=== PATIENT | female | born 1990 | race Caucasian/White ===

== ENCOUNTER 2018-10-16 18:22 | Emergency (ER) | payer MEDICAID, OTHER ==
[~2018-10-16] VITALS: Ht 170.2 cm; Wt 98.9 kg
[~2018-10-16 18:22] MED LIST: BACL10TA PO; HYDR-914 PO; NAPROXEN
[2018-10-16 18:27] VITALS: BP_SYST 162
--- NOTE | 2018-10-16 18:36 | NUR ---
Patient to ER bed 2 to gown for evaluation. Side rails up. Report given to Mandeep LARA.
--- NOTE | 2018-10-16 18:39 | NUR ---
Patient is awake, alert, and oriented x4. Patient reports that she has had aching/throbbing right sided abdominal pain, nausea, vomiting, and diarrhea for 1 week. She also states that she usually drinks 4-5 beers daily, stopping 1 week ago since the pain started.
--- NOTE | 2018-10-16 18:54 | NUR ---
ER at bedside examining patient.
[2018-10-16] MEDS ORDERED: KETOROLAC TROMETHAMINE 60 MG/2 ML VIAL IM ONE (19:00)
[2018-10-16 19:10] LABS: BILIRUBIN,URINE NEGATIVE (NEGATIVE); BLOOD, URINE 1+ (NEGATIVE); CLARITY/URINE CLEAR (CLEAR); COLOR,URINE YELLOW (YELLOW); GLUCOSE,URINE NEGATIVE (NEGATIVE); KETONES,URINE NEGATIVE (NEGATIVE); LEUKOCYTE ESTERASE ,URINE NEGATIVE (NEGATIVE); NITRITE, URINE NEGATIVE (NEGATIVE); PROTEIN URINE NEGATIVE (NEGATIVE); UROBILINOGEN,URINE 0.2 (0.2-1.0)
--- NOTE | 2018-10-16 19:12 | NUR ---
Report given to MARCO Elena for continuation of care.
[2018-10-16 19:18] LABS: BASOPHILS # (AUTO) 0.1 K/uL (0.0-0.2); BASOPHILS % (AUTO) 0.6 % (0.0-2.0); EOSINOPHILS # (AUTO) 0.4 K/uL (0.0-0.4); EOSINOPHILS % (AUTO) 3.2 % (0.0-4.0); HEMATOCRIT 37.3 % (36-48); HEMOGLOBIN 12.8 g/dL (12.0-16.0); LYMPHOCYTES # (AUTO) 2.9 K/uL (1.0-5.5); LYMPHOCYTES % (AUTO) 25.8 % (20.5-51.5); MEAN CORPUSCULAR HEMOGLOBIN 33 pg (27-31); MEAN CORPUSCULAR HGB CONC 34 % (32-36); MEAN CORPUSCULAR VOLUME 97 fL (79.0-98.0); MONOCYTES # (AUTO) 0.7 K/uL (0.0-1.0); MONOCYTES % (AUTO) 6.4 % (1.7-9.3); NEUTROPHILS # (AUTO) 7.1 K/uL (1.8-7.7); PLATELET COUNT (AUTO) 318 K/uL (130-430); RED BLOOD CELL COUNT(AUTO) 3.86 MIL/uL (4.2-6.2); RED CELL DISTRIBUTION WIDTH 12.4 % (9.0-15.0); WHITE BLOOD COUNT (AUTO) 11.2 K/uL (4.8-10.8)
[2018-10-16 19:31] LABS: CALCIUM 9.4 mg/dL (8.4-11.0); CREATININE 0.71 mg/dL (0.55-1.30); POTASSIUM 3.6 mmol/L (3.5-5.1)
[2018-10-16 19:33] LABS: BACTERIA,URINE RARE /HPF (None Seen); WBC,URINE 0-3 /HPF (0-3)
[2018-10-16 19:35] LABS: ALBUMIN 3.9 g/dL (3.4-4.8); TOTAL BILIRUBIN 0.6 mg/dL (0.0-1.0)
--- NOTE | 2018-10-16 20:15 | NUR ---
Pt to U/S via W/C.
--- NOTE | 2018-10-16 20:30 | NUR ---
Pt returns from U/S. C/o pain to right side. Dr. Moffett notified.
[2018-10-16] MEDS ORDERED: NACL 0.9% 1,000 ML IV ONE (20:46)
[2018-10-16] MEDS ORDERED: DIPHENHYDRAMINE INJ 50 MG/ML VIAL IVP ONE (21:00)
[2018-10-16] MEDS ORDERED: MORPHINE 4 MG/ML INJ. SYRINGE IVP ONE (21:00)
--- NOTE | 2018-10-16 22:10 | NUR ---
Pt to CT via W/C in stable condition.
[2018-10-16] MEDS ORDERED: IOHEXOL 100 ML IV ONE (22:14)
--- NOTE | 2018-10-16 22:20 | NUR ---
Pt returns from CT. Nazario radiology scheduler, reports that PIV infiltrated with contrast. Swelling noted to above PIV site, painful to touch. PIV discontinued with angiocath tip intact, pressure dsg applied, no bleeding noted. Dr. Moffett notified. Warm compresses applied to site of infiltration.
--- NOTE | 2018-10-16 23:00 | NUR ---
Mild pain with movement and swelling to right upper arm, no skin discoloration noted. New warm compresses applied. No needs verbalized at this time. VSS.
--- NOTE | 2018-10-16 23:47 | NUR ---
Mild pain with movement and swelling to right upper arm, no skin discoloration noted. New warm compresses applied. No needs verbalized at this time. VSS.
--- NOTE | 2018-10-17 00:17 | NUR ---
Pt states pain is returning to her right abdomen. Dr. Moffett notified.
[2018-10-17] MEDS ORDERED: MORPHINE SULFATE 10 MG/ML VIAL IM ONE (00:30)
[2018-10-17] MEDS ORDERED: DIPHENHYDRAMINE INJ 50 MG/ML VIAL IM ONE (00:30)
--- NOTE | 2018-10-17 00:45 | NUR ---
Improvement in swelling noted to Right upper extremity, no skin discoloration noted, continues to be painful to touch and movement. New warm compress applied.
--- NOTE | 2018-10-17 01:52 | NUR ---
Dr. Moffett at bedside to discuss POC.
[2018-10-17 02:15] VITALS: BP_SYST 152
--- NOTE | 2018-10-17 02:15 | NUR ---
Patient given written and verbal discharge instructions and verbalizes understanding. ER MD Moffett discussed with patient the results and treatment provided. Patient in stable condition. ID arm band removed. Rx of Tylenol with codeine given. Patient educated on pain management and to follow up with PMD. Pain Scale 0/10. Opportunity for questions provided and answered. Medication side effect fact sheet provided.
== END 2018-10-17 02:15 | disposition home or self-care (01) ==
LOC: SED 18:22
DX: K76.0 Fatty (change of) liver, not elsewhere classified (principal); J45.909 Unspecified asthma, uncomplicated; Z79.899 Other long term (current) drug therapy
CPT/HCPCS: 36415; 74177; 76700; 80053; 81000; 83690; 85025; 96372 ×2; 96374; 96375; 99284; J1200 ×2; J1885; J2270 ×2; Q9967